=== PATIENT | male | born 1955 | race Caucasian/White ===

== ENCOUNTER 2021-09-13 13:02 | Emergency (ER) | payer MEDICARE ==
[2021-09-13] MEDS ORDERED: ZOFRAN ODT 4 MG PO ONE (13:15)
[2021-09-13] MEDS ORDERED: Sodium Chloride 0.9% 1000 ML 1,000 ML IV STA ×2 (13:15→15:12)
[2021-09-13] MEDS ORDERED: Zofran 4 MG/2 ML VIAL IV ONE (13:35)
[2021-09-13] MEDS ORDERED: Zofran 4 MG/2 ML VIAL ONE ×2 (13:36→13:44)
[2021-09-13] MEDS ORDERED: Sodium Chloride 0.9% 1000 ML 0 ML ONE (13:36)
[2021-09-13] MEDS ORDERED: Sodium Chloride 0.9% 1000 ML 1,000 ML ONE ×2 (13:44→15:20)
[2021-09-13 13:47] LABS: Hematocrit 38.8 % (42-50); Hemoglobin 13.5 gm/dl (12.5-18.0); Mean Cell Volume 88.4 fl (78-100); Mean Corpuscular Hemoglobin 30.8 pg (26-32); Mean Corpuscular Hgb Concent. 34.8 g/dl (32-36); Mean Platelet Volume 10.5 fl (7.5-11.0); Platelet Count 108 K/mm3 (150-450); Red Blood Count 4.39 M/mm3 (4.1-5.6); Red Cell Distribution Width 13.6 % (11.5-14.0); White Blood Count 4.7 K/mm3 (4.0-10.5)
--- NOTE | 2021-09-13 13:47 | XRAY ---
Indication: Cough. Positive Covid 19. Comparison: None Portable chest is inflated and clear. Heart not enlarged. Bony thoracic intact with mild degenerative changes. Impression: Nonacute chest.
[2021-09-13 14:06] LABS: ALBUMIN 4.5 g/dL (3.5-5.0); ANION GAP 14.7 MEQ/L (5-15); BILIRUBIN,TOTAL 1.1 mg/dL (0.2-1.3); Calcium 9.3 mg/dL (8.4-10.2); Creatinine 1 1.31 mg/dL (0.66-1.25); EST GLOMERULAR FILTRATION RATE 58.4 ML/MIN; Total Protein 7.6 g/dL (6.3-8.2)
[2021-09-13 14:41] LABS: Appearance CLEAR (CLEAR); Bacteria RARE /HPF (NEGATIVE); Bilirubin NEGATIVE (NEGATIVE); Blood NEGATIVE Ery/ul (0-5); Glucose >=500 mg/dL (NEGATIVE); Hyaline Casts 0-2 /LPF (0-2); Ketones TRACE (NEGATIVE); Leukocyte Esterase NEGATIVE (NEGATIVE); Mucus SLIGHT /HPF (NEGATIVE); Nitrite NEGATIVE (NEGATIVE); Protein,Urine Dip NEGATIVE (Negative); RBC 0-2 /HPF (0-2); Specific Gravity 1.028 (1.005-1.025); Urobilinogen NEGATIVE mg/dL (0-1); WBC 0-2 /HPF (0-5)
[2021-09-13 15:05] LABS: INFLUENZA A NEGATIVE (NEGATIVE); INFLUENZA B NEGATIVE (NEGATIVE)
[2021-09-13 15:07] LABS: BAND 10 % (0.0-2.0); Lymphocytes 13 % (24-44); Monocyte 8 % (0.0-12.0); Neutrophils 69 % (36.-66.); Total Cells Counted 100
[2021-09-13 15:09] LABS: Platelet Estimate DECREASED (NORMAL)
--- NOTE | 2021-09-13 15:25 | XRAY ---
Indication: Cough. Positive Covid 19. Multiple contiguous axial images obtained through the chest using 100 cc Isovue 370 contrast and PE protocol. Comparison: None There is good opacification of the pulmonary arteries to include the lobar and segmental branches. No pulmonary embolus. Heart not enlarged. Aorta is normal in course and caliber. Tiny left hilar calcified nodes. No pathologic mediastinal/hilar lymphadenopathy. Lungs demonstrates subtle diffuse bilateral patchy groundglass airspace opacities without consolidation or effusion. Tiny left lower lobe calcified granulomas. Bony thorax intact with flowing osteophytes throughout the spine. Limited upper abdomen demonstrates fatty liver, 19.7 cm splenomegaly, small bilateral adrenal adenomas largest on right measuring 2 cm, and tiny hepatic/splenic calcified granulomas. Impression: 1. Negative pulmonary embolus. 2. Subtle diffuse bilateral patchy groundglass airspace opacities. Commonly reported imaging features of Covid 19 pneumonia are present. Other processes such as influenza pneumonia and organizing pneumonia, as can be seen with drug toxicity and connective tissue disease, can cause a similar imaging pattern. 3. Incidental fatty liver, splenomegaly, bilateral adrenal adenomas, chronic bony findings, and old granulomatous disease.
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
[2021-09-13 16:31] VITALS: BP 134/71; PULSE 80; O2SAT 98
== END 2021-09-13 16:35 | disposition home or self-care (01) ==
LOC: ED 13:02
DX: U07.1 COVID-19 (principal); R43.8 Other disturbances of smell and taste; R50.9 Fever, unspecified; E11.9 Type 2 diabetes mellitus without complications; Z79.84 Long term (current) use of oral hypoglycemic drugs; Z79.899 Other long term (current) drug therapy; E78.5 Hyperlipidemia, unspecified; I10 Essential (primary) hypertension; K74.60 Unspecified cirrhosis of liver; Z79.52 Long term (current) use of systemic steroids
CPT/HCPCS: 36000; 36415; 71045; 71260; 80053; 81001; 83605; 84145; 85025; 87040; 87400; 93005; 96360; 96374; 99284; J2405